=== PATIENT | male | born 1935 | race Caucasian/White ===

== ENCOUNTER 2021-06-01 09:09 | Emergency (ER) | payer BC ==
[2021-06-01] MEDS ORDERED: Sodium Chloride 0.9% 10 ML Syringe FLUSH PRN (09:16)
[2021-06-01] MEDS: AMIODARONE 150 MG/3 ML IVPUSH ONE (09:25)
[2021-06-01] MEDS: Sodium Chloride 0.9% 1,000 ML IV ONE (09:30)
[2021-06-01 09:37] VITALS: BP 87/58; PULSE 93
[2021-06-01 09:41] LABS: ANION GAP 15.5 mmol/L (5-15); CHLORIDE,CL 97 mmol/L (98-107); SODIUM,NA 132 mmol/L (136-145)
[2021-06-01] MEDS: Sodium Chloride 0.9% 50 ML IV SCH (10:30)
[2021-06-01] MEDS: Iopamidol 755 Mg/ML 75 ML Bottle IVPUSH ONE (10:30)
== END 2021-06-01 11:30 ==
LOC: KA.ED 09:09
DX: I48.91 Unspecified atrial fibrillation (principal); K92.2 Gastrointestinal hemorrhage, unspecified; D64.9 Anemia, unspecified; R79.89 Other specified abnormal findings of blood chemistry; Z88.8 Allergy status to other drugs, medicaments and biological substances; Z79.82 Long term (current) use of aspirin; Z79.01 Long term (current) use of anticoagulants; Z79.899 Other long term (current) drug therapy
CPT/HCPCS: 36415; 71045; 71275; 80053; 83880; 84484; 85025; 85379; 93005; 93010; 96374; 99284; 99285-25; J7030; Q9967

== ENCOUNTER 2021-06-27 08:44 | Emergency (ER) | payer BC ==
[2021-06-27] MEDS ORDERED: Sodium Chloride 0.9% 10 ML Syringe FLUSH PRN (08:57)
[2021-06-27 09:15] VITALS: BP 145/99; PULSE 113
[2021-06-27] MEDS ORDERED: Sodium Chloride 0.9% 1,000 ML IV ONE ×2 (09:22→09:28)
[2021-06-27] MEDS ORDERED: Diltiazem 25 MG/5 ML SDV IVPUSH ONE (09:50)
[2021-06-27 10:29] LABS: ANION GAP 14.3 mmol/L (5-15)
[2021-06-27] MEDS ORDERED: Diltiazem 125 MG in Sodium Chloride 0.9% 100 ML IV SCH (11:00)
== END 2021-06-27 12:25 ==
LOC: KA.ED 08:44
DX: I48.91 Unspecified atrial fibrillation (principal); Z88.8 Allergy status to other drugs, medicaments and biological substances; Z79.82 Long term (current) use of aspirin; Z79.899 Other long term (current) drug therapy
CPT/HCPCS: 36415; 71045; 80053; 83605; 83880; 84484; 85025; 85610; 85730; 93010; 96365; 96376; 99284; 99285-25; J3490; J7030

== ENCOUNTER 2021-07-05 12:44 | Emergency (ER) | payer BC ==
[2021-07-05 13:21] LABS: ANION GAP 11.5 mmol/L (5-15); CHLORIDE,CL 100 mmol/L (98-107); SODIUM,NA 133 mmol/L (136-145)
[2021-07-05] MEDS ORDERED: Sodium Chloride 0.9% 1,000 ML IV ONE (13:31)
[2021-07-05] MEDS ORDERED: Sodium Chloride 0.9% 1,000 ML ONE (13:33)
[2021-07-05 14:38] VITALS: BP 121/94; PULSE 91
== END 2021-07-05 15:35 | disposition home or self-care (01) ==
LOC: KA.ED 12:44
DX: R00.0 Tachycardia, unspecified (principal); E86.0 Dehydration; I48.91 Unspecified atrial fibrillation; I10 Essential (primary) hypertension; Z72.0 Tobacco use; Z88.8 Allergy status to other drugs, medicaments and biological substances; Z79.82 Long term (current) use of aspirin
CPT/HCPCS: 36415; 80053; 84484; 85025; 93005; 99284; 99285-25; J7030

== ENCOUNTER 2021-11-08 14:36 | Observation (INO) | payer BC ==
[2021-11-08] MEDS ORDERED: Sodium Chloride 0.9% 10 ML Syringe FLUSH PRN (14:49)
[2021-11-08] MEDS ORDERED: cefTRIAXone 2 GM Vial IVPUSH SCH (15:00)
[2021-11-08] MEDS ORDERED: Azithromycin 500 MG in Sodium Chloride 0.9% 250 ML IV SCH (15:00)
[2021-11-08] MEDS ORDERED: Iopamidol 755 Mg/ML 100 ML Bottle IV ONE (15:19)
[2021-11-08] MEDS ORDERED: Sodium Chloride 0.9% 100 ML IV SCH (15:30)
[2021-11-08] MEDS ORDERED: Nitroglycerin 0.4 MG Tab.SL SL PRN (15:39)
[2021-11-08] MEDS ORDERED: Ferrous Sulfate 325 MG Tab PO SCH (15:45)
[2021-11-08] MEDS: Omeprazole 20 MG Cap.CR PO SCH (17:36)
[2021-11-09 03:04] VITALS: PULSE 48
[2021-11-09] MEDS: Omeprazole 20 MG Cap.CR PO SCH (08:17)
[2021-11-09 08:18] VITALS: BP 137/56
[2021-11-09] MEDS ORDERED: Cholecalciferol (Vitamin D3) 25 MCG Tab PO SCH (09:00)
[2021-11-09] MEDS ORDERED: amLODIPine 5 MG Tab PO SCH (09:00)
[2021-11-09] MEDS ORDERED: Amiodarone 200 MG Tab PO SCH (09:00)
[2021-11-09] MEDS ORDERED: Aspirin 81 MG Tab.Chew PO SCH (09:00)
[2021-11-09] MEDS ORDERED: Lisinopril 20 MG Tab PO SCH (09:00)
[2021-11-09] MEDS ORDERED: Non-Formulary Medication 1 Each (Ubidecarenone [Co Q-10] 100 MG Capsule) PO SCH (09:00)
== END 2021-11-09 11:28 | disposition home or self-care (01) ==
LOC: UNDOADMOB 14:41 → KA.MS 14:41
PROVIDERS: ADMIT Nurse Practitioner Family; ATTEND Family Medicine
DX: J18.1 Lobar pneumonia, unspecified organism (principal); U09.9 Post COVID-19 condition, unspecified; U07.1 COVID-19; I10 Essential (primary) hypertension; I25.10 Atherosclerotic heart disease of native coronary artery without angina pectoris; J44.9 Chronic obstructive pulmonary disease, unspecified; E78.5 Hyperlipidemia, unspecified; I48.0 Paroxysmal atrial fibrillation; F17.210 Nicotine dependence, cigarettes, uncomplicated; I73.9 Peripheral vascular disease, unspecified; Z90.49 Acquired absence of other specified parts of digestive tract; Z98.890 Other specified postprocedural states; Z79.899 Other long term (current) drug therapy; Z79.01 Long term (current) use of anticoagulants; Z88.8 Allergy status to other drugs, medicaments and biological substances; Z79.82 Long term (current) use of aspirin
CPT/HCPCS: 36415; 71275; 80048; 84484; 96365; 96375; A9270-GY; G0378; G0379; J0456; J0696; J7050; Q9967; U0002

== ENCOUNTER 2023-07-31 14:33 | Emergency (ER) | payer BC ==
[2023-07-31] MEDS ORDERED: Sodium Chloride 0.9% 10 ML Syringe FLUSH PRN (14:36)
[2023-07-31 14:53] LABS: BASOPHILS ABSOLUTE AUTO 0.01 10^3/uL (0.00-0.10); BASOPHILS PERCENT AUTO 0.1 % (0.0-1.0); EOSINOPHILS ABSOLUTE AUTO 0.05 10^3/uL (0.10-0.30); EOSINOPHILS PERCENT AUTO 0.6 % (1.0-3.0); HEMATOCRIT 38.8 % (40.0-52.0); HEMOGLOBIN 12.6 g/dL (13.0-17.0); IMMATURE GRAN ABSOLUTE AUTO 0.02 10^3/uL (0.00-0.50); IMMATURE GRAN PERCENT AUTO 0.2 % (0.0-5.0); LYMPHOCYTES ABSOLUTE AUTO 0.96 10^3/uL (1.00-4.00); LYMPHOCYTES PERCENT AUTO 11.3 % (20.0-40.0); MEAN CORPUSCULAR HEMOGLOBIN 28.6 pg (27.0-31.0); MEAN CORPUSCULAR HGB CONC 32.5 g/dL (32.0-36.0); MEAN CORPUSCULAR VOLUME 88.2 fL (82.0-92.0); MEAN PLATELET VOLUME 9.2 fL (7.4-10.4); MONOCYTES ABSOLUTE AUTO 0.63 10^3/uL (0.10-0.80); MONOCYTES PERCENT AUTO 7.4 % (2.0-8.0); NEUTROPHILS ABSOLUTE AUTO 6.85 10^3/uL (2.50-7.00); NEUTROPHILS PERCENT AUTO 80.4 % (50.0-70.0); PLATELET COUNT,PLT 253 10^3/uL (150-400); WHITE BLOOD CELL COUNT,WBC 8.52 10^3/uL (5.00-10.00)
[2023-07-31] MEDS: Sodium Chloride 0.9% 1,000 ML IV ONE (14:56)
[2023-07-31 15:11] LABS: ALANINE AMINOTRANSFERASE,ALT 20 U/L (14-63); ALBUMIN 3.34 g/dL (3.40-5.00); ALKALINE PHOSPHATASE 109 U/L (46-116); ASPARTATE AMNIOTRANSFERASE,AST 19 U/L (15-37); BILIRUBIN TOTAL 0.3 mg/dL (0.2-1.0); BLOOD UREA NITROGEN,BUN 14 mg/dL (7-18); CALCIUM 8.4 mg/dL (8.7-10.3); CARBON DIOXIDE,CO2 28.4 mmol/L (21.0-32.0); CHLORIDE,CL 100 mmol/L (98-107); CREATININE 0.96 mg/dL (0.51-1.17); ESTIMATED GFR 77 mL/min (>=60); GLUCOSE RANDOM 113 mg/dL (70-140); POTASSIUM,K 4.4 mmol/L (3.5-5.1); PROTEIN TOTAL,TP 6.9 g/dL (6.4-8.2); SODIUM,NA 137 mmol/L (136-145)
[2023-07-31 15:14] LABS: B-TYPE NATRIURETIC PEPTIDE,BNP 40 pg/mL (0-100)
[2023-07-31 15:21] LABS: BILIRUBIN,URINE NEGATIVE (NEGATIVE); COLOR,URINE LIGHT YELLOW (YELLOW); GLUCOSE,URINE NEGATIVE (NEGATIVE); KETONES,URINE NEGATIVE (NEGATIVE); LEUKOCYTE ESTERASE,URINE NEGATIVE (NEGATIVE); NITRITE,URINE NEGATIVE (NEGATIVE); OCCULT BLOOD,URINE TRACE-INTACT (NEGATIVE); PROTEIN,URINE NEGATIVE (NEGATIVE); UROBILINOGEN,URINE 0.2 E.U./dL (0.2-1.0)
[2023-07-31 15:34] LABS: APPEARANCE,URINE CLEAR (CLEAR); BACTERIA,URINE OCCASIONAL /HPF (NONE TO FEW); EPITHELIAL CELLS,URINE RARE /LPF; RBC,URINE 0-5 /HPF (0-5); WBC,URINE 0-5 /HPF (0-5)
[2023-07-31 16:09] VITALS: BP 139/72; PULSE 65
== END 2023-07-31 16:20 | disposition home or self-care (01) ==
LOC: KA.ED 14:33
DX: R55 Syncope and collapse (principal); R42 Dizziness and giddiness; F17.200 Nicotine dependence, unspecified, uncomplicated; I10 Essential (primary) hypertension; J44.9 Chronic obstructive pulmonary disease, unspecified; Z79.82 Long term (current) use of aspirin; Z79.899 Other long term (current) drug therapy; Z86.19 Personal history of other infectious and parasitic diseases
CPT/HCPCS: 71045; 80053; 81001; 83880; 84484; 85025; 93005; 96360; 99284-25; J7030

== ENCOUNTER 2024-01-17 14:50 | Emergency (ER) | payer BC, MEDICARE ==
[2024-01-17] MEDS: HYDROmorphone 1 MG/ML Syringe IVPUSH ONE (15:20)
[2024-01-17] MEDS: ceFAZolin 1 GM Vial IVPUSH ONE (15:25)
[2024-01-17] MEDS: Lidocaine 1% 5 ML VIAL INJECT ONE (16:03)
[2024-01-17] MEDS: Diphtheria,Pertussis(Acell),Tetanus Vaccine 0.5 ML Syringe IM ONE (16:10)
[2024-01-17 16:51] VITALS: BP 156/72; PULSE 74
== END 2024-01-17 16:38 ==
LOC: KA.ED 14:50
DX: S62.622B Displaced fracture of middle phalanx of right middle finger, initial encounter for open fracture (principal); I10 Essential (primary) hypertension; Z79.82 Long term (current) use of aspirin; Z79.899 Other long term (current) drug therapy; Z88.8 Allergy status to other drugs, medicaments and biological substances; W22.8XXA Striking against or struck by other objects, initial encounter
CPT/HCPCS: 64450; 73140-F7; 90471; 90715; 96374; 96375; 99283; 99284-25; J0690; J1171; J3490

== ENCOUNTER 2025-01-03 18:45 | Emergency (ER) | payer BC, MEDICARE ==
[2025-01-03 19:14] LABS: BASOPHILS ABSOLUTE AUTO 0.03 10^3/uL (0.00-0.10); BASOPHILS PERCENT AUTO 0.3 % (0.0-1.0); EOSINOPHILS ABSOLUTE AUTO 0.04 10^3/uL (0.10-0.30); EOSINOPHILS PERCENT AUTO 0.4 % (1.0-3.0); IMMATURE GRAN ABSOLUTE AUTO 0.03 10^3/uL (0.00-0.04); IMMATURE GRAN PERCENT AUTO 0.3 % (0.0-0.4); LYMPHOCYTES ABSOLUTE AUTO 0.95 10^3/uL (1.00-4.00); LYMPHOCYTES PERCENT AUTO 9.6 % (20.0-40.0); MEAN PLATELET VOLUME 8.9 fL (7.4-10.4); MONOCYTES ABSOLUTE AUTO 0.79 10^3/uL (0.10-0.80); MONOCYTES PERCENT AUTO 8.0 % (2.0-8.0); NEUTROPHILS ABSOLUTE AUTO 8.07 10^3/uL (2.50-7.00); NEUTROPHILS PERCENT AUTO 81.4 % (50.0-70.0); PLATELET COUNT,PLT 271 10^3/uL (150-400); RED BLOOD CELL COUNT 4.65 10^6/uL (4.50-6.00); RED CELL DISTRIBUTION WIDTH 13.4 % (11.5-14.5); WHITE BLOOD CELL COUNT,WBC 9.91 10^3/uL (5.00-10.00)
[2025-01-03 19:26] LABS: ALANINE AMINOTRANSFERASE,ALT 16.0 U/L (14-63); ASPARTATE AMNIOTRANSFERASE,AST 17.0 U/L (15-37); BILIRUBIN TOTAL 0.5 mg/dL (0.2-1.0); BLOOD UREA NITROGEN,BUN 13.0 mg/dL (7-18); CARBON DIOXIDE,CO2 25.5 mmol/L (21.0-32.0); CHLORIDE,CL 97.0 mmol/L (98-107); CREATININE 0.74 mg/dL (0.51-1.17); EST CRCL DRUG DOSING (CG) 65.75 mL/min; ESTIMATED GFR 88.0 mL/min (>=60); GLUCOSE RANDOM 107.0 mg/dL (70-140); POTASSIUM,K 3.8 mmol/L (3.5-5.1); PROTEIN TOTAL,TP 6.8 g/dL (6.4-8.2); SODIUM,NA 135.0 mmol/L (136-145)
[2025-01-03 19:59] VITALS: BP 139/72; PULSE 78
== END 2025-01-03 20:24 | disposition home or self-care (01) ==
LOC: KA.ED 18:45
DX: R42 Dizziness and giddiness (principal); R07.9 Chest pain, unspecified; I48.91 Unspecified atrial fibrillation; I10 Essential (primary) hypertension; J44.9 Chronic obstructive pulmonary disease, unspecified; F17.210 Nicotine dependence, cigarettes, uncomplicated; Z88.8 Allergy status to other drugs, medicaments and biological substances; Z79.82 Long term (current) use of aspirin; Z79.899 Other long term (current) drug therapy; Z95.5 Presence of coronary angioplasty implant and graft
CPT/HCPCS: 36415; 71045; 80053; 84484; 85025; 99285